=== PATIENT | male | born 2000 | race Caucasian/White ===

== ENCOUNTER 2025-06-04 21:19 | Emergency (ER) | payer SELFPAY ==
[2025-06-04] MEDS ORDERED: NA CHLORIDE 0.9% 1,000 ML ONE (21:49)
[2025-06-04] MEDS ORDERED: ONDANSETRON 4 MG/2 ML VIAL ONE (21:49)
[2025-06-04 21:51] LABS: Absolute Lymphocytes (CBC) 0.9 K/uL (0.7-4.9); Hematocrit 48.3 % (39.6-49.0); Hemoglobin 16.7 g/dL (13.6-17.9); MCH 32.3 pg (27.0-35.0); MCHC 34.6 g/dL (32.0-36.0); MCV 93.3 fL (80-100); MPV 9.6 fL (7.6-11.3); Nucleated RBC Absolute Count 0.0 (0-0); Nucleated Red Blood Cells % 0.0 % (0-0); RBC Red Blood Cell Count 5.18 M/uL (4.33-5.43); White Blood Count 14.70 thou/uL (4.3-10.9)
[2025-06-04 22:09] LABS: ALT/SGPT 20.0 U/L (16-61); AST/SGOT 16.0 U/L (15-37); Albumin 5.4 g/dL (3.4-5.0); Albumin/Globulin Ratio 1.4 (1.1-1.8); Alkaline Phosphatase 94.0 U/L (45-117); Anion Gap 11.9 mEq/L (5.0-15.0); BUN Blood Urea Nitrogen 20.0 mg/dL (7-18); Globulin 4.0 g/dL (2.3-3.5); Glucose Level 121.0 mg/dL (74-106); Lipase 15.0 U/L (13-75); Potassium 3.9 mEq/L (3.5-5.1)
[2025-06-04] MEDS ORDERED: D5 0.9 NS 1,000 ML IV ONE (22:40)
--- NOTE | 2025-06-04 22:40 | ER ---
Nurse's Notes [facility] Name: Keith Morillo Age: 24 yrs Sex: Male : 2000 Arrival Date: 06/04/2025 Time: 21:19 Bed 2 Private MD: Diagnosis: ACUTE GASTROENTERITIS;Nausea with vomiting, unspecified Presentation: 06/04 21:34 Chief complaint: Patient states: Pt states he has been having abd pain, n/v, since this mf3 morning around and its has worsened. Coronavirus screen: Client denies travel out of the [place] in the last 14 days. At this time, the client does not indicate any symptoms associated with coronavirus-19. Ebola Screen: No symptoms or risks identified at this time. Initial Sepsis Screen: Does the patient meet any 2 criteria? No. Patient's initial sepsis screen is negative. Does the patient have a suspected source of infection? No. Patient's initial sepsis screen is negative. Risk Assessment: Do you want to hurt yourself or someone else? Patient reports no desire to harm self or others. Onset of symptoms was June 04, 2025. 21:34 Method Of Arrival: Ambulatory 3 21:34 Acuity: REAL 3 3 Triage Assessment: 21:40 General: Appears in no apparent distress. Behavior is calm, cooperative, appropriate mf3 for age. Pain: Complains of pain in abdomen Pain currently is 8 out of 10 on a pain scale. Neuro: Level of Consciousness is awake, alert, obeys commands, Oriented to person, place, time, situation. Respiratory: Airway is patent Trachea midline Respiratory effort is even, unlabored. GI: Abdomen is flat, Bowel sounds present X 4 quads. Abd is soft and non tender. : No signs and/or symptoms were reported regarding the genitourinary system. Derm: Skin is intact. Musculoskeletal: No signs and/or symptoms reported regarding the musculoskeletal system. Historical: - Allergies: 21:39 No Known Allergies; mf3 - PMHx: 21:39 None; mf3 - PSHx: 21:39 None; mf3 - Immunization history:: Adult Immunizations up to date. - Infectious Disease History:: Denies. - Social history:: Smoking status: Patient denies any tobacco usage or history of. Screenin:45 [facility] ED Fall Risk Assessment (Adult) History of falling in the last 3 months, mf3 including since admission No falls in past 3 months (0 pts) Confusion or Disorientation No (0 pts) Intoxicated or Sedated No (0 pts) Impaired Gait No (0 pts) Mobility Assist Device Used No (0 pt) Altered Elimination No (0 pt) Score/Fall Risk Level 0 - 2 = Low Risk Oriented to surroundings. Abuse screen: Denies threats or abuse. Denies injuries from another. Nutritional screening: No deficits noted. Tuberculosis screening: No symptoms or risk factors identified. Assessment: 21:45 General: Appears in no apparent distress. Behavior is calm, cooperative, appropriate mf3 for age. Pain: Complains of pain in abdomen. Neuro: Level of Consciousness is awake, alert, obeys commands, Oriented to person, place, time. Cardiovascular: Capillary refill < 3 seconds. Respiratory: Airway is patent Trachea midline Respiratory effort is even, unlabored. GI: Bowel sounds present X 4 quads. : No signs and/or symptoms were reported regarding the genitourinary system. 22:50 Reassessment: Patient and/or family updated on plan of care and expected duration. Pain mf3 level reassessed. Patient is alert, oriented x 3, equal unlabored respirations, skin warm/dry/pink. Vital Signs: 21:34 BP 115 / 97; Pulse 99; Resp 18; Temp 98.2; Pulse Ox 100% on R/A; Weight 68.04 kg; mf3 Height 5 ft. 10 in. ; Pain 8/10; 22:49 BP 113 / 66; Pulse 85; Resp 16; Pulse Ox 100% on R/A; mf3 21:34 Body Mass Index 21.52 (68.04 kg, 177.8 cm) mf3 21:34 Pain Scale: Adult mf3 Vitals: 21:45 Cardiac Rhythm Assessment Regular. mf3 Brennan Coma Score: 21:45 Eye Response: spontaneous(4). Motor Response: obeys commands(6). Verbal Response: mf3 oriented(5). Total: 15. ED Course: 21:20 Patient arrived in ED. mr 21:25 Teddy Ybarra DO is Attending Physician. tt7 21:34 Ingrid Bdaillo, RN is Primary Nurse. mf3 21:39 Triage completed. mf3 21:40 Arm band placed on left wrist. Patient placed in an exam room. mf3 21:45 Patient has correct armband on for positive identification. Bed in low position. Call mf3 light in reach. Provided Education on: pt educated on POC. 21:45 No provider procedures requiring assistance completed. Inserted saline lock: 22 gauge mf3 in left antecubital area, using aseptic technique. 21:52 CBC with Diff Sent. mf3 21:52 CMP Sent. mf3 21:52 Lipase Sent. mf3 22:57 IV discontinued, intact, bleeding controlled, No redness/swelling at site. Pressure cc6 dressing applied. Administered Medications: 22:52 Discontinued: [id number] ml IV at bolus bolus cc6 21:52 Drug: NS 0.9% IV 1000 ml IV at 1 bolus Per protocol; to be given as a bolus over 60 mf3 minutes Route: IV; Rate: 1 bolus; Site: left antecubital; 22:51 Follow up: Response: No adverse reaction; IV Status: Completed infusion; IV Intake: cc6 1000ml 21:52 Drug: Droperidol IVP 1.25 mg IVP once Route: IVP; Site: left antecubital; mf3 22:52 Follow up: Response: No adverse reaction cc6 21:53 Drug: Ondansetron IVP 4 mg IVP once; over 2 minutes Route: IVP; Site: left antecubital; mf3 22:50 Follow up: Response: No adverse reaction; Nausea is decreased cc6 22:46 Drug: D5-NS IV 1000 ml IV at bolus bolus Route: IV; Rate: bolus; Site: left antecubital;cc6 22:58 Follow up: IV Status: Completed infusion cc6 Medication: 21:45 VIS not applicable for this client. mf3 Intake: 22:51 IV: 1000ml; Total: 1000ml. cc6 Outcome: 22:39 Discharge ordered by MD. tt7 22:57 Discharged to home ambulatory, cc6 22:57 Condition: stable 22:57 Discharge instructions given to patient, Instructed on discharge instructions, follow up and referral plans. medication usage, Demonstrated understanding of instructions, follow-up care, medications, 22:57 Patient left the ED. cc6 Signatures: Tamar Rodriguez, Shavon Silva RN RN cc6 Ingrid Badillo RN RN mf3 Teddy Ybarra DO DO tt7
--- NOTE | 2025-06-04 22:40 | EDPHYS ---
Physician Documentation [facility] Name: Keith Morillo Age: 24 yrs Sex: Male : 2000 Arrival Date: 06/04/2025 Time: 21:19 Bed 2 Private MD: ED Physician Teddy Ybarra HPI: 06/04 21:34 This 24 yrs old Male presents to ER via Unassigned with complaints of Abdominal Pain, tt7 Diarrhea. Historical: - Allergies: 21:39 No Known Allergies; mf3 - PMHx: 21:39 None; mf3 - PSHx: 21:39 None; mf3 - Immunization history:: Adult Immunizations up to date. - Infectious Disease History:: Denies. - Social history:: Smoking status: Patient denies any tobacco usage or history of. Vital Signs: 21:34 BP 115 / 97; Pulse 99; Resp 18; Temp 98.2; Pulse Ox 100% on R/A; Weight 68.04 kg; mf3 Height 5 ft. 10 in. ; Pain 8/10; 22:49 BP 113 / 66; Pulse 85; Resp 16; Pulse Ox 100% on R/A; mf3 21:34 Body Mass Index 21.52 (68.04 kg, 177.8 cm) mf3 21:34 Pain Scale: Adult mf3 Brennan Coma Score: 21:45 Eye Response: spontaneous(4). Motor Response: obeys commands(6). Verbal Response: mf3 oriented(5). Total: 15. MDM: 21:25 Medical Screening Exam initiated tt7 06/04 21:33 Order name: CBC with Diff tt7 06/04 21:33 Order name: CMP; Complete Time: 22:24 tt7 06/04 21:33 Order name: Lipase; Complete Time: 22:24 tt7 06/04 21:56 Order name: Manual Differential EDMS 06/04 21:33 Order name: IV Saline Lock; Complete Time: 21:52 tt7 06/04 21:33 Order name: Labs collected and sent; Complete Time: 21:52 tt7 06/04 22:28 Order name: PO challenge; Complete Time: 22:32 tt7 Administered Medications: 22:52 Discontinued: [id number] ml IV at bolus bolus cc6 21:52 Drug: NS 0.9% IV 1000 ml IV at 1 bolus Per protocol; to be given as a bolus over 60 mf3 minutes Route: IV; Rate: 1 bolus; Site: left antecubital; 22:51 Follow up: Response: No adverse reaction; IV Status: Completed infusion; IV Intake: cc6 1000ml 21:52 Drug: Droperidol IVP 1.25 mg IVP once Route: IVP; Site: left antecubital; mf3 22:52 Follow up: Response: No adverse reaction cc6 21:53 Drug: Ondansetron IVP 4 mg IVP once; over 2 minutes Route: IVP; Site: left antecubital; mf3 22:50 Follow up: Response: No adverse reaction; Nausea is decreased cc6 22:46 Drug: D5-NS IV 1000 ml IV at bolus bolus Route: IV; Rate: bolus; Site: left antecubital;cc6 22:58 Follow up: IV Status: Completed infusion cc6 Disposition Summary: 06/04/25 22:39 Discharge Ordered Notes: Location: Home tt7 Problem: new tt7 Symptoms: have improved tt7 Condition: Stable tt7 Diagnosis - ACUTE GASTROENTERITIS tt7 - Nausea with vomiting, unspecified tt7 Followup: tt7 - With: Emergency Department - When: As needed - Reason: Followup: tt7 - With: Private Physician - When: 1 - 2 days - Reason: Recheck today's complaints, Re-evaluation by your physician Discharge Instructions: - Discharge Summary Sheet tt7 - Nausea and Vomiting, Adult tt7 Forms: - Medication Reconciliation Form tt7 - Antibiotic Education tt7 - Prescription Opioid Use tt7 - Patient Portal Instructions tt7 - Leadership Thank You Letter tt7 Prescriptions: - Zofran 4 mg Oral tablet - take 1 tablet ORAL route every 8 hours As needed; 20 tablet; Refills: 0, tt7 Product Selection Permitted Addendum: 06/08/2025 18:23 Addendum: 24-year-old male presents emergency department for epigastric crampy t t7 abdominal pain which started this morning and is associated with multiple episodes of nonbloody nonbilious vomiting and multiple episodes of watery nonbloody diarrhea. No significant past medical history. Constitutional: denies fever Respiratory: denies SOB, cough Cardiovascular: denies chest pain, palpitations GI: Reports abdominal pain, nausea, vomiting Neuro: denies focal weakness Skin: denies rash Constitutional: vital signs reviewed, well appearing Head: normocephalic, atraumatic Eyes: no conjunctival injection, anicteric sclerae ENMT: mucus membranes moist Neck: trachea midline, no JVD, no meningismus Respiratory: normal respiratory effort, no accessory muscle use, lungs CTAB, no wheezing or rales Cardiovascular: Regular rate and rhythm, no murmurs, no rubs, no lower extremity edema Abdomen: soft, nondistended, nontender, no guarding or rebound, negative Figueroa's sign, no McBurney point tenderness MSK: normal ROM of extremities, no gross deformities Skin: warm, dry, intact, no rash Neuro: alert and oriented with appropriate mental status, normal speech, follows commands, no focal neurologic deficits Psych: appropriate mood and affect Well-appearing 24-year-old male with stable vital signs and reassuring physical exam, benign abdominal exam, he has signs/symptoms of gastroenteritis, standard abdominal pain workup was ordered, he was treated with IV fluids, IV antiemetics, and reassessed, laboratory studies were overall reassuring without acute abnormalities concerning for dangerous or emergent medical conditions, on reassessment he was significantly improved, able to tolerate oral intake in the emergency department, workup again consistent with gastroenteritis likely of viral etiology, after completion of the patient's emergency department evaluation, I do not suspect a life-threatening or disabling process. Patient is medically stable and not in need of emergent medical intervention. I had a detailed discussion with the patient regarding the historical points, exam findings, emergency department evaluation, diagnostic results, and the discharge diagnosis. I instructed the patient on outpatient management of their condition. I discussed the need for outpatient follow-up with a primary care physician. I informed the patient on return precautions, including the need to return to the ED if symptoms do not improve, worsen, or if there are any questions or concerns that arise at home. The patient was discharged in stable condition . Co-signature as Attending Physician, Teddy Ybarra DO. Signatures: Dispatcher [employer] EDID Shavon Omalley RN RN cc6 Ingrid Badillo RN RN mf3 Teddy Ybarra DO DO tt7
[2025-06-04 23:06] VITALS: TEMP 98.2; O2SAT 100
[2025-06-04 23:08] VITALS: BP 113/66
[2025-06-04 23:28] LABS: Blood Morphology Comment NOT SEEN (NOT SEEN); Differential Total Cells Count 100; Segmented Neutrophils 86 % (40-80)
== END 2025-06-04 22:57 | disposition home or self-care (01) ==
LOC: ER 21:19
DX: K52.9 Noninfective gastroenteritis and colitis, unspecified (principal)
CPT/HCPCS: 36415; 80053; 83690; 85025; 96361; 96374; 96375; 99284; J1790; J2405; J7030; J7042